=== PATIENT | male | born 1945 | race Caucasian/White ===

== ENCOUNTER 2023-01-14 10:22 | Observation (INO) | payer OTHER, MEDICARE ==
[~2023-01-14] VITALS: Ht 188 cm; Wt 107.8 kg
[2023-01-14] VITALS (12 sets, daily range): BP systolic 125–156; BP diastolic 53–73
--- NOTE | 2023-01-14 10:22 | NUR ---
PATIENT ROOM VIA WHEELCHAIR. FAMILY AT BEDSIDE
--- NOTE | 2023-01-14 10:36 | NUR ---
PT C/O DOUBLE VISION "EXACTLY LIKE WHEN I HAD MY LAST STROKE." LAST KNOWN NORMAL 0730 THIS MORNING. STROKE ALERT CALLED AT 1036. PT IMMEDIATELY TO CT.
--- NOTE | 2023-01-14 11:12 | NUR ---
aRRIVED BACK TO ROOM [address]
[2023-01-14 11:26] LABS: BASO% 0.6 % (0-3); EOS% 0.4 % (0-8); HEMATOCRIT 38.5 % (39.0-50.0); IMMATURE GRANULOCYTES 0.4 % (0.0-5.0); LYMPH% 15.1 % (15-41); MEAN CELL VOLUME 88.1 fL CALC (80.0-100.0); MEAN CORPUSCULAR HGB 29.7 pG CALC (26.0-32.0); MEAN CORPUSCULAR HGB CONC 33.8 g/dL CAL (32.0-36.0); NEUT# 3.89 thou/uL (1.82-7.42); NEUT% 72.5 % (42-76); RED BLOOD COUNT 4.37 mill/uL (4.70-6.10)
[2023-01-14 11:32] LABS: INTERNATIONAL NORMALIZED RATIO 1.1 RATIO (0.7-1.3)
[2023-01-14 11:35] LABS: ALBUMIN 4.2 g/dL (3.2-5.0); ALKALINE PHOSPHATASE 110 u/l (38-126); ANION GAP 9 (6-22 (CALC)); BILIRUBIN, TOTAL 1.3 mg/dL (0.2-1.3); BUN 20 mg/dL (8-23); BUN/CREATININE RATIO 18 (12-20 (CALC)); CARBON DIOXIDE 30 mmol/l (22-30); CHLORIDE 99 mmol/l (95-108); CREATININE 1.1 mg/dL (0.7-1.3); GFR FOR AFR.AMER. > 60 ML/MIN (>=60 (CALC)); GFR OTHER RACES > 60 ML/MIN (>=60 (CALC)); POTASSIUM 3.3 mmol/l (3.5-5.1); SGOT/AST 37 u/l (19-48); SODIUM 134 mmol/l (137-146); TOTAL PROTEIN 7.5 g/dL (6.3-8.2)
[2023-01-14] MEDS ORDERED: CHLORTHALIDONE25 MG PO (11:47)
[2023-01-14] MEDS ORDERED: NORTRIPTYLIN25 MG PO (11:47)
[2023-01-14] MEDS ORDERED: ASPIRIN81 MG PO (11:47)
[2023-01-14] MEDS ORDERED: LIPITOR40 M1 PO (11:48)
[2023-01-14] MEDS ORDERED: METOPROL TAR25 MG PO (11:48)
[2023-01-14] MEDS ORDERED: OMEPRAZOLE20 MG PO (11:48)
[2023-01-14] MEDS ORDERED: NORVASC5 M1 PO (11:49)
[2023-01-14 12:32] LABS: URINE BILIRUBIN - DIPSTICK NEGATIVE (NEGATIVE); URINE BLOOD DIPSTICK TRACE-INTACT (NEGATIVE); URINE COLOR YELLOW; URINE GLUCOSE - DIPSTICK NEGATIVE (NEGATIVE); URINE KETONE NEGATIVE (NEGATIVE); URINE LEUK ESTERASE NEGATIVE (NEGATIVE); URINE PH 7.5 (4.5-8.0); URINE PROTEIN - DIPSTICK NEGATIVE (NEG-TRACE)
[2023-01-14 12:33] LABS: URINE NITRITE - DIPSTICK NEGATIVE (Negative)
[2023-01-14] MEDS ORDERED: PAXLOVID PO (12:55)
--- NOTE | 2023-01-14 14:25 | NUR ---
PT DENIES ANY NEEDS AT THIS TIME.
--- NOTE | 2023-01-14 15:33 | NUR ---
Admission Note Report Given to: DIANE RN Transported by: Stretcher Transported with: Nurse Patent IV Relief Pharmacist [place] [facility] [place]
--- NOTE | 2023-01-14 16:11 | NUR ---
PT ARRIVES FROM ER VIA STRETCHER ACCOMPANIED BY NURSE ANNIA. PT IS ALERT AND ORIENTED X 3. LUNGS CLEAR, RA. PT ANSWERS QUESTIONS APPROPRIATELY. EYE PATCH COVERS RIGHT EYE, WHICH ALLOWS HIM TO SEE WITHOUT DOUBLE VISION. THIS IS HIS ONLY DEFICIT, IS A 1 ON NIHSS.
--- NOTE | 2023-01-14 18:02 | NUR ---
PT WITH AT BEDSIDE, NO CHANGE IN NEURO STATUS. HE CONTINUES SYMPTOM-FREE EXCEPT FOR DOUBLE VISION.
--- NOTE | 2023-01-14 20:00 | NUR ---
RECEIVED REPORT FROM NURSE CONTRERAS ASSUMED PATIENT CARE, PATIENT ON ISOLATION FOR COVID, ALERT ORINETD X 4, ABLE TO MAKE NEEDS KNOWN, RT EYE COVERED WITH A PATCH R/T PATIENT HAVING DOUBLE VISION ON RT EYE, GOOD EYE COORDINATION BUT DOES SEE DOUBLE VISION ON RT EYE, NO DRIFT NOTED, ABLE TO FOLLOW COMMANDS, CLEAR SPEECH, PATIENT SPO2 UPON ASSESSMET 88% ON ROOM AIR APPLIED O2 @ 2LPM RANGE 93-94%, SALINE LOCK NOTED ON LAC G 20 PATENT FLUSHES WELL, WILL INSERT ANOTHER LINE PER CVA PROTOCOL, PLACED PATIENT IN SCD, CALL LIGHTV IN REACH.
--- NOTE | 2023-01-14 21:00 | NUR ---
MRI SCREENING DONE, PATIENT HAD KNEE SURGERY, SPOKE TO RADIOOLOGY BECAUSE PATIENT IS FOR MRI TOMORROW, PER [facility] OF RADILOGY THEY CANT DO IT.
--- NOTE | 2023-01-14 23:35 | NUR ---
PATIENT RESTING IN BED, WITH EYES CLOSED, NEW IV SITE REINSERTED ON RT FA G 20, PATENT FLUSHES WELL.
--- NOTE | 2023-01-15 04:20 | NUR ---
PATIENT RESTING WITH EYES CLOSED, REMAINS ON O2 @ 2LPM VIA NC, NOT IN DISTRESS, CALL LIGHT IN REACH,
[2023-01-15 04:23] VITALS: BP 141/59
[2023-01-15 05:38] LABS: BASO% 0.5 % (0-3); EOS% 0.5 % (0-8); HEMATOCRIT 34.9 % (39.0-50.0); HEMOGLOBIN 12.2 g/dl (14.0-18.0); IMMATURE GRANULOCYTES 0.5 % (0.0-5.0); MEAN CELL VOLUME 88.1 fL CALC (80.0-100.0); MEAN CORPUSCULAR HGB 30.8 pG CALC (26.0-32.0); MONO% 14.8 % (2-13); NEUT# 2.88 thou/uL (1.82-7.42); NEUT% 65.7 % (42-76); RED BLOOD COUNT 3.96 mill/uL (4.70-6.10)
[2023-01-15 06:09] LABS: ALBUMIN 3.5 g/dL (3.2-5.0); ALKALINE PHOSPHATASE 102 u/l (38-126); ANION GAP 8 (6-22 (CALC)); BILIRUBIN, TOTAL 1.2 mg/dL (0.2-1.3); BUN 19 mg/dL (8-23); BUN/CREATININE RATIO 18 (12-20 (CALC)); C-REACTIVE PROTEIN 2.2 mg/dL (0-0.9); CARBON DIOXIDE 28 mmol/l (22-30); CHLORIDE 100 mmol/l (95-108); CREATININE 1.1 mg/dL (0.7-1.3); GFR FOR AFR.AMER. > 60 ML/MIN (>=60 (CALC)); GFR OTHER RACES > 60 ML/MIN (>=60 (CALC)); SGOT/AST 33 u/l (19-48); SODIUM 133 mmol/l (137-146); TOTAL PROTEIN 6.2 g/dL (6.3-8.2)
[2023-01-15 06:23] VITALS: BP 127/54
--- NOTE | 2023-01-15 07:00 | NUR ---
REPORT FROM ISAMAR ROBIN. ASSUMED PT CARE.
--- NOTE | 2023-01-15 07:45 | NUR ---
PT NOTED SITTING UP IN BED WATCHING TV. PT REMAINS IN ISOLATION FOR COVID, A&O X4 AND ABLE TO MAKE NEEDS KNOWN. RIGHT EYE REMAINS COVERED AT THIS TIME. NO APPARENT DEFICITS NOTED. O2 @ 2L/M VIA NC, SAT 94%. PT DENIES ANY PAIN OR SOB. DISCUSSED POC AND SAFETY PRECAUTIONS. PT VERBALIZED UNDERSTANDING. CALL LIGHT WITHIN REACH. WILL CONTINUE TO MONITOR.
[2023-01-15 10:23] VITALS: BP 119/47
--- NOTE | 2023-01-15 11:21 | NUR ---
WINDOWS SECURITY ENGINEER RECEIVED PHONE CALL FROM TELENEUROLOGIST. RECOMMENDATIONS TO ALTERNATE EYE PATCH BETWEEN LEFT AND RIGHT EYE EVERY COUPLE OF HOURS.
[2023-01-15 11:59] LABS: CALCULATED LDLCHOLESTEROL 108 mg/dL (62-129 (CALC)); CHOLESTEROL HDL RATIO 5.6 (<4.4 (CALC)); HDL CHOLESTEROL 28 mg/dL (39.0-59.0); TOTAL CHOLESTEROL 157 mg/dl (0-199); TOTAL TRIGLYCERIDES 102 mg/dl (0-149); VLDL CHOLESTROL 20 mg/dl (0-38 (CALC))
--- NOTE | 2023-01-15 12:00 | NUR ---
DR. OCAMPO AT BEDSIDE.
--- NOTE | 2023-01-15 13:15 | NUR ---
PT UP TO BATHROOM TO VOID. NO APPARENT DISTRESS NOTED. PT DENIES ANY SOB. O2 SAT 95% ON RA. WILL LEAVE OFF O2 AT THIS TIME AND CONTINUE TO MONITOR.
--- NOTE | 2023-01-15 13:45 | NUR ---
NOTIFIED DR. OCAMPO OF MRI RESULTS. PT AND ARE VERY EAGER TO DISCHARGE HOME. WILL CONTINUE TO MONITOR.
--- NOTE | 2023-01-15 14:32 | NUR ---
IV site discontinued, cath intact. No edema , no redness, voices no discomfort.
--- NOTE | 2023-01-15 14:32 | NUR ---
Discharge instructions given. Patient verbalizes understanding of same. Discharged in stable condition via Wheelchair to Home with family. All belongings sent with pt.
== END 2023-01-15 14:33 | disposition home or self-care (01) | DRG 123 ==
LOC: ED 10:22 → ED-I 12:18 → ED 13:07 → MS2 13:08
PROVIDERS: Family Medicine; Psychiatry & Neurology Neurology; ADMIT Internal Medicine; ATTEND Internal Medicine
DX: H49.21 Sixth [abducent] nerve palsy, right eye (principal); U07.1 COVID-19; I10 Essential (primary) hypertension; E78.5 Hyperlipidemia, unspecified; K21.9 Gastro-esophageal reflux disease without esophagitis; G62.9 Polyneuropathy, unspecified
CPT/HCPCS: A9579; J1650; Q9967